=== PATIENT | female | born 1955 | race Caucasian/White ===

== ENCOUNTER → 2019-01-06 | Outpatient (CLI) | payer MEDICARE, OTHER ==
--- NOTE | 2019-01-07 11:48 | MM ---
Reason for exam: screening (asymptomatic). Last mammogram was performed 1 year and 5 months ago. History: Patient is postmenopausal. Benign left mammotome panel of the left breast, February 26, 2011. Took hormonal contraceptives for 1 year beginning at age 20. Physical Findings: A clinical breast exam by your physician is recommended on an annual basis and results should be correlated with mammographic findings. MG 3D Screening Mammo W/Cad Bilateral CC and MLO view(s) were taken. Prior study comparison: July 25, 2017, bilateral MG 3d screening mammo w/cad. May 30, 2016, bilateral MG 3d screening mammo w/cad. There are scattered fibroglandular densities. Previous mammotome biopsy in the left breast. There is chronic nodularity in the right breast. No significant changes when compared with prior studies. ASSESSMENT: Negative, BI-RAD 1 RECOMMENDATION: Routine screening mammogram of both breasts in 1 year.
== END ==
LOC: RADMAMWWP 14:55
PROVIDERS: ATTEND Family Medicine
DX: Z12.31 Encounter for screening mammogram for malignant neoplasm of breast (principal)
CPT/HCPCS: 77063; 77067

== ENCOUNTER → 2019-01-06 | Outpatient (CLI) | payer MEDICARE, OTHER ==
[2019-01-06 15:52] LABS: Basophils # (A) 0.1 k/uL (0-0.2); Basophils % (A) 1 %; Eosinophils # (A) 0.3 k/uL (0-0.7); Eosinophils % (A) 3 %; HCT 40.7 % (34.0-46.0); HGB 13.1 gm/dL (11.4-16.0); Lymphocytes # (A) 1.6 k/uL (1.0-4.8); Lymphocytes % (A) 19 %; MCH 27.9 pg (25.0-35.0); MCHC 32.2 g/dL (31.0-37.0); MCV 86.6 fL (80.0-100.0); Mean Platelet Volume 6.9; Monocytes # (A) 0.4 k/uL (0-1.0); Monocytes % (A) 5 %; Neutrophils # (A) 5.7 k/uL (1.3-7.7); Neutrophils % (A) 70 %; Platelet Count 295 k/uL (150-450); RDW 14.9 % (11.5-15.5); WBC 8.2 k/uL (3.8-10.6)
== END | disposition home or self-care (01) ==
LOC: LABWHC1 15:06
PROVIDERS: ATTEND Psychiatry & Neurology Neurology
DX: G35 Multiple sclerosis (principal); Z79.899 Other long term (current) drug therapy
CPT/HCPCS: 36415; 84460; 85025

== ENCOUNTER → 2019-06-29 | Outpatient (CLI) | payer MEDICARE, OTHER ==
--- NOTE | 2019-06-29 15:43 | MR ---
EXAMINATION TYPE: MR brain wo/w con DATE OF EXAM: 06/29/2019 COMPARISON: MRI brain dated 06/10/2018 HISTORY: Multiple sclerosis, Pan weakness/numbness TECHNIQUE: Multiplanar, multisequence images of the brain and brainstem is performed without and with IV contras t, utilizing 9 mL intravenous Gadavist . FINDINGS: Diffusion weighted images demonstrate no evidence of a recent infarct or other diffusion ab normality. There is no extra-axial fluid collection. Again there are numerous foci of scattered T2/F LAIR hyperintense foci within the juxtacortical white matter and periventricular white matter as well as within the deep white matter (this was described as moderate on the prior exam and number were no t counted nor estimated given (exam from an outside institution). In comparison to the exam of 2017 there is redemonstration of brainstem involvement with hyperintensity in the central tasha unchan ged from the prior and numerous white matter foci again in the juxtacortical and periventricular whit e matter as well as the deep white matter. For comparison the most confluent lesion is seen in the ri ght temporal region measuring 0.7 x 0.8 cm, unchanged. No new discrete lesions are seen. No lesions r estricting diffusion nor enhancement to indicate active demyelination. The ventricular system and cisternal spaces are normal in size and appearance. The brain volume is a ge appropriate. Midline structures demonstrate normal morphology. The craniocervical junction appears within normal limits. Post contrast images demonstrate no abnormal enhancement. The dural venous sinuses appear pa tent. The visualized sinuses are clear and the globes are intact. There is partial opacification of l eft mastoid air cells. IMPRESSION: 1. Similar size and number of the moderate to severe burden nonspecific white matter change in keepin g with this patient's history of multiple sclerosis/demyelinating disease. No new enhancing lesions n or lesions that restricted diffusion to indicate active demyelination. Of note there is pontine invol vement, stable from the prior. 2. Partial opacification of the left mastoid air cells. Correlate for point tenderness to exclude mas toiditis.
== END ==
LOC: RADMRIMAIN 12:48
PROVIDERS: ATTEND Psychiatry & Neurology Neurology
DX: R90.89 Other abnormal findings on diagnostic imaging of central nervous system (principal); G35 Multiple sclerosis
CPT/HCPCS: 70553; A9585

== ENCOUNTER → 2024-12-16 | Outpatient (CLI) | payer MEDICARE, OTHER ==
--- NOTE | 2024-12-16 12:47 | MM ---
Reason for Exam: Clinical finding. Last mammogram was performed 5 year(s) and 11 month(s) ago. Indicated Problems: Pain of the left side (Global) for 1 Month(s). Lump or thickening of the right side for 10 Day(s). Patient History: Menarche at age 15. First Full-Term at age 21. Postmenopausal. Patient has history of breast feeding. Hormonal Contraceptives for 1 year from age 20 until age 21. 02/26/2011, Benign Core Biopsy on the left side. Risk Values: Jocelyn 5 year model risk: 1.4%. NCI Lifetime model risk: 5.0%. Prior Study Comparison: 12/07/1993 Screening Mammogram, Unknown. 07/04/1995 Screening Mammogram, Unknown. 06/14/1999 Left Special View Mammogram, [facility]. 06/27/1999 Left Diagnostic Ultrasound, [facility]. 06/27/1999 Screening Mammogram, Unknown. 01/08/2000 Bilateral Diagnostic Mammogram, [facility]. 12/11/2000 Bilateral Special View Mammogram, [facility]. 12/18/2000 Left Diagnostic Ultrasound, [facility]. 07/01/2001 Left Diagnostic Mammogram, [facility]. 07/01/2002 Bilateral Diagnostic Mammogram, [facility]. 08/12/2003 Bilateral Special View Mammogram, [facility]. 08/15/2004 Bilateral Diagnostic Mammogram, [facility]. 08/15/2004 Left Diagnostic Ultrasound, [facility]. 05/29/2007 Bilateral Screening Mammogram, [facility]. 06/05/2007 Left Diagnostic Mammogram, [facility]. 06/05/2007 Left Diagnostic Ultrasound, [facility]. 12/07/2007 Bilateral Diagnostic Mammogram, [facility]. 01/09/2010 Right Diagnostic Mammogram, [facility]. 01/09/2010 Right Diagnostic Ultrasound, [facility]. 02/05/2011 Bilateral Screening Mammogram, [facility]. 02/11/2011 Left Diagnostic Mammogram, [facility]. 02/11/2011 Left Diagnostic Ultrasound, [facility]. 09/09/2011 Left Diagnostic Mammogram, [facility]. 02/10/2012 Bilateral Screening Mammogram, [facility]. 03/18/2013 Bilateral Screening Mammogram, [facility]. 04/05/2014 Bilateral Screening Mammogram, [facility]. 04/10/2015 Bilateral Screening Mammogram, [facility]. 05/30/2016 Bilateral Screening Mammogram, [facility]. 07/25/2017 Bilateral Screening Mammogram, [facility]. 01/06/2019 Bilateral Screening Mammogram, [facility]. Tissue Density: There are scattered areas of fibroglandular density. Findings: Analyzed By CAD. No evidence for mass or distortion. No distinct abnormality at the site of clinical concern right breast. Correlate clinically. Overall Assessment: Negative, BI-RAD 1 Management: Screening Mammogram of both breasts in 1 year. . Results were given to the patient verbally at the time of exam. Patient should continue monthly self-breast exams. A clinical breast exam by your physician is recommended on an annual basis. This exam should not preclude additional follow-up of suspicious palpable abnormalities. Note on Jocelyn scores and lifetime risk: 1. A Jocelyn score greater than 3% is considered moderate risk. If this is the case, consider specialist referral to assess eligibility for a risk reducing agent. 2. If overall lifetime risk for the development of breast cancer is 20% or higher, the patient may qualify for future screening with alternating mammogram and breast MRI. [facility], , 12/16/2024 12:44 PM. Electronically signed and approved by: cSooby Sepulveda M.D. [facility]
== END | disposition home or self-care (01) ==
LOC: RADMAMWWP 11:04
PROVIDERS: ATTEND Family Medicine
DX: N63.12 Unspecified lump in the right breast, upper inner quadrant (principal); N63.10 Unspecified lump in the right breast, unspecified quadrant; R92.323 Mammographic fibroglandular density, bilateral breasts; N63.20 Unspecified lump in the left breast, unspecified quadrant; Z78.0 Asymptomatic menopausal state; Z92.0 Personal history of contraception
CPT/HCPCS: 77066; G0279; 77062